=== PATIENT | female | born 1980 | race Caucasian/White ===

== ENCOUNTER → 2020-10-01 | Outpatient (CLI) | payer OTHER | LOC: MC.RAD 11:45 | DX: Z12.31 Encounter for screening mammogram for malignant neoplasm of breast (principal) ==

== ENCOUNTER → 2022-07-03 | Outpatient (CLI) | payer OTHER | LOC: MC.RAD 08:31 | DX: Z12.31 Encounter for screening mammogram for malignant neoplasm of breast (principal); N64.89 Other specified disorders of breast ==

== ENCOUNTER → 2022-07-07 | Outpatient (CLI) | payer OTHER | LOC: MC.RAD 07:50 | DX: N64.89 Other specified disorders of breast (principal) ==

== ENCOUNTER → 2023-11-25 | Outpatient (CLI) | payer OTHER | LOC: MC.RAD 08:27 | DX: Z12.31 Encounter for screening mammogram for malignant neoplasm of breast (principal) ==